=== PATIENT | male | born 1955 | race Caucasian/White ===

== ENCOUNTER 2021-10-23 15:48 | Outpatient (CLI) | payer BC, SELFPAY ==
[2021-10-23 21:43] LABS: Chloride* 105 mmol/L (96-114); Potassium* 4.3 mmol/L (3.6-5.1); Sodium* 140 mmol/L (135-149)
[2021-10-23 21:46] LABS: Blood Urea Nitrogen* 15 mg/dL (7-30); Carbon Dioxide* 29 mmol/L (20-32); Creatinine* 0.9 mg/dL (0.5-1.5); Estimated Glomerular Filt Rate 95 ml/min
[2021-10-23 21:47] LABS: Calcium* 8.9 mg/dL (8.4-10.6); Glucose* 90 mg/dL (60-115)
== END 2021-10-23 15:49 | disposition home or self-care (01) ==
LOC: LKVREF 15:49
PROVIDERS: PCP Emergency Medicine; Visit Provider Emergency Medicine
DX: Z00.00 Encounter for general adult medical examination without abnormal findings (principal); I10 Essential (primary) hypertension; M10.9 Gout, unspecified
CPT/HCPCS: 80048

== ENCOUNTER 2021-12-11 13:38 | Outpatient (CLI) | payer BC, SELFPAY ==
[2021-12-11 21:33] LABS: Cholesterol* 148 mg/dL (90-199)
[2021-12-11 21:34] LABS: HDL Cholesterol* 64 mg/dL (>=40); LDL Cholesterol Calculated 69 mg/dL (<100); Triglycerides* 77 mg/dL (40-149)
[2021-12-11 22:07] LABS: PSA Screen* 0.62 ng/mL (0.10-4.00)
[2021-12-11 22:58] LABS: Glucose* 101 mg/dL (60-115)
== END 2021-12-11 13:39 | disposition home or self-care (01) ==
PROVIDERS: PCP Emergency Medicine; Visit Provider Emergency Medicine
DX: Z13.1 Encounter for screening for diabetes mellitus (principal); E78.5 Hyperlipidemia, unspecified; Z12.5 Encounter for screening for malignant neoplasm of prostate; I10 Essential (primary) hypertension; M25.511 Pain in right shoulder
CPT/HCPCS: 80061; 82947; 84153

== ENCOUNTER 2022-10-13 07:38 | Outpatient (CLI) | payer BC, SELFPAY ==
--- NOTE | 2022-10-13 08:15 | CRLHL7_ITS ---
For Patients: As a result of the Century Cures Act, medical imaging exams and procedure reports are released immediately into your electronic medical record. You may view this report before your referring provider. If you have questions, please contact your health care provider. INDICATION: 67 year-old male. Screening for abdominal aortic aneurysms. Family history of abdominal aortic aneurysm. Smoking history. TECHNIQUE: Directed ultrasound of the abdominal aorta and proximal common iliac arteries utilizing grayscale imaging. FINDINGS: Scattered atherosclerotic plaque throughout the abdominal aorta and proximal common iliac arteries. No aneurysm. The proximal abdominal aorta measures 2.3 x 2.9 cm in AP and transverse dimension. The mid aorta measures 1.8 x 1.2 cm in AP and transverse dimension. The distal aorta measures 1.7 x 2.0 cm in AP and transverse dimension. The proximal right common iliac artery measures 1.0 x 1.4 cm. The proximal left common iliac artery measures 1.0 x 1.3 cm. No katelynn aortic masses. IMPRESSION: Scattered atherosclerotic plaque. No evidence for abdominal aortic or proximal common iliac artery aneurysms. Dictated by Omi Leo MD @ 10/13/2022 8:57:52 AM (Electronically Signed)
== END 2022-10-13 07:39 | disposition home or self-care (01) ==
PROVIDERS: PCP Emergency Medicine; Visit Provider Emergency Medicine
DX: Z87.891 Personal history of nicotine dependence (principal); Z13.6 Encounter for screening for cardiovascular disorders
CPT/HCPCS: 76706

== ENCOUNTER 2023-04-16 11:26 | Outpatient (CLI) | payer BC, SELFPAY | END 2023-04-16 11:27 | disposition home or self-care (01) | LOC: LKVREF 11:28 | PROVIDERS: PCP Emergency Medicine; Visit Provider Emergency Medicine | DX: Z01.818 Encounter for other preprocedural examination (principal) | CPT/HCPCS: 80048 ==